=== PATIENT | female | born 1955 | race Caucasian/White ===

== ENCOUNTER 2020-07-15 06:44 | Day surgery (SDC) | payer OTHER ==
[2020-07-15] MEDS ORDERED: Sodium Chloride 0.9% 10 ML Syringe FLUSH PRN (06:45)
[2020-07-15] MEDS ORDERED: Lactated Ringers 1,000 ML IV SCH (06:45)
[2020-07-15] MEDS ORDERED: Propofol 200 MG/20 ML SDV IV ONE (06:45)
--- NOTE | 2020-07-15 08:30 | PCM.OPNOTE ---
- General Post-Op/Procedure Note Date of Surgery/Procedure: 07/15/20 Operative Procedure(s): c scope Findings: nl exam Pre Op Diagnosis: screening for colon cancer Post-Op Diagnosis: normal exam Anesthesia Technique: MAC Primary Surgeon: Galileo Brown Anesthesia Provider: Roxy Vaughn Pathology: none Complications: None Condition: Good Free Text/Narrative:: see dictation
--- NOTE | 2020-07-15 11:26 | OR ---
DATE OF OPERATION: 07/15/2020 SURGEON: Galileo Brown MD PROCEDURE PERFORMED: Colonoscopy. PREOPERATIVE DIAGNOSIS: Need for colon cancer screening. POSTOPERATIVE DIAGNOSIS: Normal exam. INDICATIONS FOR PROCEDURE: This is a 65-year-old white female who presents for a screening colonoscopy. She was offered and accepted same. DESCRIPTION OF OPERATION: After an excellent IV sedation was administered, digital rectal exam was performed. No marked abnormality was noted. Flexible colonoscope was inserted and advanced to the cecum. Prep was excellent. Following findings were noted: Ascending colon, unremarkable. Transverse colon, unremarkable. Descending colon, unremarkable. Sigmoid and rectum, unremarkable. Colon was deflated. The scope was removed. The patient tolerated the procedure well, was taken to recovery room. RECOMMENDATIONS: Repeat colonoscopy in 10 years. /[id number] /MODL
== END 2020-07-15 09:13 | disposition home or self-care (01) ==
LOC: FB.SDS 06:44
PROVIDERS: ATTEND Surgery
DX: Z12.11 Encounter for screening for malignant neoplasm of colon (principal); E78.49 Other hyperlipidemia; F41.1 Generalized anxiety disorder; Z79.899 Other long term (current) drug therapy
CPT/HCPCS: 45378; J2704; J7120